=== PATIENT | female | born 2000 | race Caucasian/White ===

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

== ENCOUNTER 2021-01-02 14:29 | Emergency (ER) | payer OTHER ==
[2021-01-02 15:41] LABS: HEMOGLOBIN 14.8 gm/dl (12.3-15.3); RED BLOOD COUNT 4.95 M/UL (4.00-5.10); WHITE BLOOD COUNT 6.5 K/UL (4.5-11.0)
[2021-01-02 16:02] LABS: BUN/CREATININE RATIO 12 (0-10)
[2021-01-02] MEDS ORDERED: LACTULOSE20 GM/30 M PO (17:09)
[2021-01-02] MEDS ORDERED: ZOFRAN ODT 4 MG4 MG PO (17:09)
== END 2021-01-02 17:15 | disposition home or self-care (01) ==
LOC: ER1 14:29
PROVIDERS: Family Medicine
DX: K59.00 Constipation, unspecified (principal); R11.2 Nausea with vomiting, unspecified; Z87.19 Personal history of other diseases of the digestive system; F17.290 Nicotine dependence, other tobacco product, uncomplicated
CPT/HCPCS: 74019; 80053; 81001; 83690; 84703; 85025; 96374; 99284; J2405

== ENCOUNTER 2021-01-27 20:46 | Emergency (ER) | payer OTHER ==
[~2021-01-27 20:46] MED LIST changes: +LACTULOSE20 GM/30 M PO
== END 2021-01-28 00:05 | disposition home or self-care (01) ==
LOC: ER1 20:46
DX: U07.1 COVID-19 (principal); R09.89 Other specified symptoms and signs involving the circulatory and respiratory systems; Z90.49 Acquired absence of other specified parts of digestive tract
CPT/HCPCS: 71045; 99285; U0002

== ENCOUNTER 2021-01-30 23:56 | Emergency (ER) | payer OTHER ==
[2021-01-31] MEDS ORDERED: PROVENTIL HFA6.7 GM INH (02:34)
[2021-01-31] MEDS ORDERED: ZOFRAN ODT 4 MG4 MG PO (02:34)
[2021-01-31] MEDS ORDERED: LODINE CAP 300300 MG PO (02:34)
== END 2021-01-31 02:36 | disposition home or self-care (01) ==
LOC: ER1 23:56
DX: U07.1 COVID-19 (principal); F17.290 Nicotine dependence, other tobacco product, uncomplicated
CPT/HCPCS: 71045; 81001; 84703; 87081; 87086; 87880; 93005; 99285; U0002

== ENCOUNTER → 2021-02-15 | Outpatient (CLI) | payer OTHER ==
[~2021-02-15] MED LIST changes: +LODINE CAP 300300 MG PO; +PROVENTIL HFA6.7 GM INH
== END ==
LOC: NM 02-09 08:00 → US 02-09 14:00 → NM 08:11
DX: E05.90 Thyrotoxicosis, unspecified without thyrotoxic crisis or storm (principal)
CPT/HCPCS: 76536; 78012; A9516

== ENCOUNTER 2021-03-24 16:52 | Emergency (ER) | payer OTHER ==
[2021-03-24 17:29] LABS: HEMOGLOBIN 13.8 gm/dl (12.3-15.3); RED BLOOD COUNT 4.74 M/UL (4.00-5.10); WHITE BLOOD COUNT 5.5 K/UL (4.5-11.0)
[2021-03-24 17:42] LABS: BUN/CREATININE RATIO 15 (0-10)
[2021-03-24] MEDS ORDERED: MACROBID 100 M100 MG PO (21:00)
== END 2021-03-24 21:10 | disposition home or self-care (01) ==
LOC: ER1 16:52
PROVIDERS: Physician Assistant
DX: N39.0 Urinary tract infection, site not specified (principal)
CPT/HCPCS: 72129; 72132; 80053; 81001; 83690; 84703; 85025; 85652; 86140; 96374; 99284; J2550; Q9967

== ENCOUNTER → 2021-07-14 | Outpatient (CLI) | payer OTHER ==
[~2021-07-14] MED LIST changes: +MACROBID 100 M100 MG PO; +ZITHROMAX250 MG PO
== END ==
LOC: EXRD 09:25
DX: R10.84 Generalized abdominal pain (principal)
CPT/HCPCS: 76705

== ENCOUNTER → 2021-09-26 | Outpatient (CLI) | payer OTHER | LOC: MRI 13:54 | DX: K83.3 Fistula of bile duct (principal); R10.13 Epigastric pain | CPT/HCPCS: 36415; 74181; 80076; 82150; 83690 ==